=== PATIENT | male | born 1965 | race African-American/Black ===

== ENCOUNTER 2016-09-01 21:01 | Inpatient (IN) | payer MEDICAID ==
[~2016-09-01] VITALS: Ht 180.3 cm; Wt 68.0 kg
[~2016-09-01 21:01] MED LIST: ATI.5 PO; CYCL10TA79 PO
[2016-09-01 21:05] VITALS: BP 150/100
--- NOTE | 2016-09-01 21:07 | NUR ---
PT REINALDO ALS. TAKEN TO BED 8
--- NOTE | 2016-09-01 21:16 | NUR ---
DR. BRITO AT BEDSIDE
[2016-09-01] MEDS ORDERED: MULTIVITAMIN-12 10 ML, THIAMINE 100 MG, MAGNESIUM SULFATE 50% 2,000 MG, FOLIC ACID 5 MG... IV ONE ×5 (21:26)
[2016-09-01] MEDS ORDERED: LORazepam 2 MG/ML VIAL IVP ONE (21:30)
[2016-09-01] MEDS ORDERED: MAGNESIUM SULFATE 50% 1000 MG/2 ML VIAL IV ONE (21:35)
[2016-09-01] MEDS ORDERED: THIAMINE 200 MG/2 ML VIAL ONE (21:35)
[2016-09-01] MEDS ORDERED: MULTIVITAMIN-12 10 ML VIAL IV ONE (21:35)
[2016-09-01] MEDS ORDERED: FOLIC ACID 5 MG/ML SYR ONE (21:35)
--- NOTE | 2016-09-01 21:53 | NUR ---
INFORMED DR. BRITO THE FIRST VIAL OF ATIVAN WAS PULLED AND ACCIDENTALLY THROWN IN THE SHARPS DISPOSAL WITH THE NEEDLES USED IN MIXING THE BANANA BAG, SAID ORDER ANOTHER ATIVAN 1MG VIA IVP
--- NOTE | 2016-09-01 21:56 | NUR ---
BIBA C/O SEIZURES FOR 2-3 MINUTES WITNESSED BY FAMILY, NO TRAUMA NOR INJURY . PT STATES I DIDNT KNOW I HAVE SEIZURE, WITH EPISODES OF NAUSEA AND VOMITTING STARTED TODAY, SKIN IS PINK/WARM/DRY; AAOX4 ,HR EVEN AND REGULAR; PT DENIES ANY FEVER, CP, SOB, OR COUGH AT THIS TIME; PATIENT STATES PAIN OF 8/10 AT THIS TIME;PATINT POSITIONED FOR COMFORT; HOB ELEVATED; BEDRAILS UP X2; BED DOWN.
[2016-09-01 22:01] LABS: HEMATOCRIT 36.3 % (36-52); HEMOGLOBIN 11.8 g/dL (12.0-18.0); MEAN CORPUSCULAR HEMOGLOBIN 33 pg (27-31); MEAN CORPUSCULAR HGB CONC 33 g/dL (33-37); MEAN CORPUSCULAR VOLUME 101 fL (80-94); PLATELET COUNT (AUTO) 114 K/uL (140-450); RED BLOOD CELL COUNT(AUTO) 3.59 MIL/uL (4.20-6.10); RED CELL DISTRIBUTION WIDTH 16.4 % (11.6-13.7); WHITE BLOOD COUNT (AUTO) 6.3 K/uL (4.8-10.8)
--- NOTE | 2016-09-01 22:16 | NUR ---
PT CALM, SLIGHTLY SLEEPY, NO UNUSUAL OBSERVATION NOTED, EYES CLOSE, VITAL SIGN STABLE
[2016-09-01 22:25] LABS: PLATELET ESTIMATE DECREASED
[2016-09-01 22:29] LABS: ALANINE AMINOTRANSFERASE 66 U/L (12-78); ALBUMIN 4.3 g/dL (3.4-5.0); ALCOHOL, BLOOD < 3 mg/dL (<3); ALKALINE PHOSPHATASE 95 U/L (46-116); ANION GAP 27.7 (8-16); ASPARTATE AMINOTRANSFERASE 161 U/L (15-37); CALCIUM 8.9 mg/dL (8.5-10.1); CHLORIDE 96 mmol/L (98-107); CREATININE 1.3 mg/dL (0.6-1.3); GFR ARICAN-AMERICAN 75 mL/min (>90); GFR NON ARICAN-AMERICAN 62 mL/min (>90); GLUCOSE 149 mg/dL (74-106); POTASSIUM 3.7 mmol/L (3.5-5.1); SODIUM SERUM 140 mmol/L (136-145); TOTAL BILIRUBIN 0.9 mg/dL (0.0-1.0); TOTAL PROTEIN, SERUM 8.3 g/dL (6.4-8.2); UREA NITROGEN, BLOOD 9 mg/dL (7-18)
[2016-09-01 22:35] LABS: BAND % (MANUAL) 4 % (0-8); LYMPHOCYTES % (MANUAL) 13 % (20-46); MONOCYTES % (MANUAL) 3 % (5-12); NEUTROPHILS % (MANUAL) 80 (43-65)
[2016-09-01 23:08] LABS: AMPHETAMINE, URINE NEGATIVE ng/ml (NEG <=1000); BARBITURATE, URINE NEGATIVE ng/ml (NEG <=200); BENZODIAZEPINE, URINE NEGATIVE ng/mL (NEG <=200); CANNABINOID, URINE NEGATIVE ng/mL (NEG <=50); COCAINE, URINE NEGATIVE ng/mL (NEG <=300); OPIATE, URINE NEGATIVE ng/mL (NEG <=2000); PHENCYCLIDINE SCREEN,URINE NEGATIVE ng/mL (NEG <=25)
--- NOTE | 2016-09-01 23:09 | NUR ---
PER PT NO PAIN AT THIS TIME,IVF ONGOING WELL TOLERATED,NO SEIZURE NOTED.
[2016-09-02] MEDS ORDERED: ACETAMINOPHEN 325 MG TAB PO PRN (00:40)
[2016-09-02] MEDS ORDERED: HYDROcodone/APAP 7.5/325 MG 1 TAB PO PRN (00:40)
[2016-09-02] MEDS ORDERED: DOCUSATE SODIUM 100 MG GELCAP PO PRN (00:40)
[2016-09-02] MEDS ORDERED: ONDANSETRON 4 MG/2 ML VIAL IM/IVP PRN (00:40)
[2016-09-02] MEDS ORDERED: LORazepam 1 MG TAB PO PRN (00:50)
--- NOTE | 2016-09-02 01:02 | NUR ---
PT AWARE WILL BE TRANSFER TO THE FLOOR FOR ADMISSION
[2016-09-02 01:06] LABS: APPEARANCE,URINE CLEAR (CLEAR); BILIRUBIN,URINE NEGATIVE (NEGATIVE); BLOOD, URINE 3+ (NEGATIVE); COLOR,URINE YELLOW (YELLOW); LEUKOCYTE ESTERASE ,URINE NEGATIVE (NEGATIVE); NITRITE, URINE NEGATIVE (NEGATIVE); PROTEIN,URINE 2+ (NEGATIVE); UGLUCOSE NEGATIVE (NEGATIVE); UROBILINOGEN,URINE 0.2 EU/dL (0.2 - 1)
[2016-09-02 01:14] LABS: INR 1.1 (0.8-1.2); PARTIAL THROMBOPLASTIN TIME 22.9 secs (22-35.6); PROTHROMBIN TIME 10.3 secs (10.8-13.4)
[2016-09-02 01:20] LABS: BACTERIA,URINE OCCASSIONAL /HPF (None Seen); MUCUS,URINE 1+ /LPF (None Seen); RBC,URINE 3-10 (FEW) /HPF (0-5); SQUAMOUS EPITHELIAL CELL,UR 4-10 (MOD) /LPF (0-3 (FEW)); WBC,URINE 0-5 (RARE) /HPF (0-5)
[2016-09-02 01:21] LABS: HYALINE CASTS, URINE 0-10 /LPF (None Seen)
--- NOTE | 2016-09-02 01:25 | NUR ---
ENDORSED TO PEDRITO PT HAS 60 DOLLARS MONEY ON HIS SOCKS AND PT WANTS TO KEEP IT, REFUSED TO PUT IT IN THE SAFE AT THIS TIME, WILL TRANSFER PT TO THE FLOOR
--- NOTE | 2016-09-02 01:29 | NUR ---
Patient will be admitted to care of DR. WANG. Admited to TELE. Will go to room 115. Belongings list completed. Report to PEDRITO. PT AAO NO SIEZURES NOTED.
--- NOTE | 2016-09-02 01:30 | NUR ---
ADMITTED 51 YEAR OLD MALE FROM ER. INITIAL ASSESSMENT COMPLETED. PT AAOX4. PT DENIES PAIN AT THIS TIME. VS STABLE. PT HAS IV ON RIGHT WRIST G 18 INFUSING FLUIDS WELL. PT'S SKIN IS INTACT. ORIENTED PT TO ROOM AND SURROUNDINGS AND USE OF CALL LIGHT. EXPLAINED PLAN OF CARE TO PT AND HE VERBALIZED UNDERSTANDING. PT PLACED ON SAFETY/FALL/SEIZURE PRECAUTION. BED ALARM ON, WILL CONTINUE TO MONITOR PT.
[2016-09-02 01:33] LABS: CHOL/HDL RATIO 1.6 (1-4.5); FREE T4 (FREE THYROXINE) 0.62 ng/dL (0.76-1.46); PHOSPHORUS 4.3 mg/dL (2.5-4.9); THYROID STIMULATING HORMONE 1.4 uIU/mL (0.34-3.76)
[2016-09-02 01:44] LABS: MAGNESIUM 0.9 mg/dL (1.8-2.4)
--- NOTE | 2016-09-02 02:05 | NUR ---
PT'S MAGNESIUM LEVEL 0.9 DR. ECKERT AWARE, WILL FOLLOW UP ON ORDERS.
[2016-09-02] MEDS: MAG SULF 2000 MG/WATER PREMIX 100 ML IV SCH ×2 (02:20→05:28)
[2016-09-02] MEDS: NACL 0.9% 1,000 ML IV SCH ×3 (02:23→19:07)
[2016-09-02] MEDS ORDERED: LEVOFLOXACIN 500 MG/D5W PREMIX 100 ML IV SCH (02:40)
[2016-09-02 04:00] VITALS: BP 135/78
[2016-09-02] MEDS: LORazepam 1 MG TAB PO SCH ×3 (04:20→21:00)
--- NOTE | 2016-09-02 04:47 | NUR ---
PT TOLERATED 0500 MED WELL. PT STABLE. PT HAS SCDS ON. WILL CONTINUE TO MONITOR PT.
[2016-09-02 06:13] LABS: BASOPHILS # (AUTO) 0.1 K/uL (0.00-0.22); BASOPHILS % (AUTO) 1.1 % (0.0-2.0); EOSINOPHILS # (AUTO) 0.1 K/uL (0-0.4); EOSINOPHILS % (AUTO) 1.6 % (0.0-4.0); HEMATOCRIT 34.9 % (36-52); HEMOGLOBIN 11.2 g/dL (12.0-18.0); LYMPHOCYTES # (AUTO) 0.9 K/uL (2.0-11.5); LYMPHOCYTES % (AUTO) 11.4 % (20.5-51.1); MEAN CORPUSCULAR HEMOGLOBIN 33 pg (27-31); MEAN CORPUSCULAR HGB CONC 32 g/dL (33-37); MEAN CORPUSCULAR VOLUME 102 fL (80-94); MONOCYTES # (AUTO) 0.7 K/uL (0.8-1.0); MONOCYTES % (AUTO) 9.1 % (1.7-9.3); NEUTROPHILS # (AUTO) 6.1 K/uL (1.8-7.7); NEUTROPHILS % (AUTO) 76.8 % (42.2-75.2); PLATELET COUNT (AUTO) 86 K/uL (140-450); RED BLOOD CELL COUNT(AUTO) 3.43 MIL/uL (4.20-6.10); RED CELL DISTRIBUTION WIDTH 16.3 % (11.6-13.7); WHITE BLOOD COUNT (AUTO) 7.9 K/uL (4.8-10.8)
--- NOTE | 2016-09-02 06:13 | NUR ---
PT SLEEPING, NO SIGNS OF DISTRESS NOTED. WILL CONTINUE TO MONITOR PT.
[2016-09-02 06:29] LABS: ANION GAP 18.2 (8-16); CALCIUM 8.3 mg/dL (8.5-10.1); CREATININE 0.6 mg/dL (0.6-1.3); POTASSIUM 3.2 mmol/L (3.5-5.1)
[2016-09-02 06:31] LABS: ALBUMIN 3.6 g/dL (3.4-5.0); MAGNESIUM 2.6 mg/dL (1.8-2.4)
--- NOTE | 2016-09-02 06:33 | NUR ---
VOLUNTEER ASSISTANT AT BEDSIDE. PT STABLE, WILL CONTINUE TO MONITOR PT.
--- NOTE | 2016-09-02 07:25 | NUR ---
ENDORSED PLAN OF CARE TO DAY SHIFT NURSE. PT IN STABLE CONDITION.
--- NOTE | 2016-09-02 07:30 | NUR ---
RECEIVED REPORT FROM SHARRON MAJOR. PT IS A/OX4, AMBULATES WITH ASSIST, PT HAS GENERALIZED WEAKNESS, HAND TREMORS ARE NOTED, SKIN IS INTACT, IV TO THE RT WRIST, PATENT, INTACT, FLUSHING WELL, NO S/S OF RESPIRATORY DISTRESS OR DISCOMFORT NOTED, SAFETY/FALL/SEIZURE PRECAUTIONS ARE IN PLACE, DISCUSSED PLAN OF CARE WITH PT, PT VERBALIZED UNDERSTANDING, CALL LIGHT IS WITHIN REACH, WILL CONTINUE TO MONITOR.
[2016-09-02 08:00] VITALS: BP 154/101
[2016-09-02] MEDS ORDERED: KETOROLAC 30 MG/ML VIAL IVP PRN (08:00)
[2016-09-02] MEDS ORDERED: LACTOBACILLUS RHAMNOSUS GG 1 EACH CAP PO SCH (09:00)
[2016-09-02] MEDS ORDERED: POTASSIUM CHLORIDE 10 MEQ TABER PO SCH (09:00)
--- NOTE | 2016-09-02 09:30 | NUR ---
DUE MEDICATIONS WERE GIVEN, PT TOLERATED WELL.
[2016-09-02] MEDS: MULTIVITAMIN 1 TAB PO SCH (09:53)
[2016-09-02] MEDS: FOLIC ACID 1 MG TAB PO SCH (09:53)
[2016-09-02] MEDS: THIAMINE 100 MG TAB PO SCH (09:54)
--- NOTE | 2016-09-02 11:30 | NUR ---
PT RESTING IN BED, TALKING ON THE PHONE.
--- NOTE | 2016-09-02 11:39 | NUR ---
PATIENT HAS BEEN SCREENED AND CATEGORIZED LOW NUTRITION RISK. PATIENT WILL BE SEEN WITHIN 7 DAYS OF ADMISSION. 09/09/16 JULITA CORONADO MBA, RD
[2016-09-02 12:00] VITALS: BP 138/83
--- NOTE | 2016-09-02 13:40 | NUR ---
PT RESTING IN BED, WATCHING TV, NO S/S OF RESPIRATORY DISTRESS OR DISCOMFORT NOTED, CALL LIGHT WITHIN REACH, WILL CONTINUE TO MONITOR.
--- NOTE | 2016-09-02 15:30 | NUR ---
PT SLEEPING IN BED AT THIS TIME, CALL LIGHT WITHIN REACH.
[2016-09-02 16:00] VITALS: BP 124/73
--- NOTE | 2016-09-02 16:45 | NUR ---
CROSS ENTERPRISE INTEGRATOR IS AT BEDSIDE AT THIS TIME.
--- NOTE | 2016-09-02 17:00 | NUR ---
PT RESTING IN BED, WATCHING TV, CALL LIGHT IS WITHIN REACH.
[2016-09-02] MEDS ORDERED: guaiFENesin 20 MG/ML UDC PO PRN (17:10)
--- NOTE | 2016-09-02 19:25 | NUR ---
PT ENDORSED TO SHARRON BOLIVAR. FOR CONTINUITY OF CARE, PT STABLE AT THIS TIME.
--- NOTE | 2016-09-02 19:30 | NUR ---
RECEIVED REPORT FROM THERON MCDERMOTT AT BEDSIDE. PT IS ALERT AWAKE ORIENTED X4. INITIAL ASSESSMENT DONE. NO S/S OF RESPIRATORY DISTRESS OR SOB NOTED. NO C/O PAIN OR ANY DISCOMFORT AT THIS TIME. PLAN OF CARE REVIEWED TO PT AND VERBALIZED UNDERSTANDING. CALL LIGHT WITHIN REACH. WILL CONTINUE TO MONITOR.
[2016-09-02 20:00] VITALS: BP 126/77
[2016-09-03] VITALS: BP 119/73
--- NOTE | 2016-09-03 00:20 | NUR ---
PT IS SLEEPING RIGHT NOW BUT EASILY AROUSABLE. NO S/S OF ANY DISCOMFORT AT THIS TIME. ALL NEEDS ARE ATTENDED. CALL LIGHT WITHIN REACH. WILL CONTINUE TO MONITOR.
[2016-09-03] MEDS: NACL 0.9% 1,000 ML IV SCH ×3 (01:38→22:42)
[2016-09-03] MEDS: LORazepam 1 MG TAB PO PRN ×2 (01:39→03:04)
--- NOTE | 2016-09-03 01:39 | NUR ---
PT IS VERY AGITATED AND RESTLESS TRYING TO PULL OUT HEART MONITOR AND IV LINE. ADMINISTER PRN MEDICATION FOR AGITATION ORDERED. WILL CONTINUE TO MONITOR.
--- NOTE | 2016-09-03 03:04 | NUR ---
PT STILL VERY AGITATED AND RESTLESS TRYING TO PULL OUT HEART MONITOR AND IV LINE. ADMINISTER PRN MEDICATION FOR AGITATION ORDERED. WILL CONTINUE TO MONITOR.
[2016-09-03] MEDS: MORPHINE SULFATE 2 MG/ML SYR IVP PRN ×3 (03:51→17:46)
[2016-09-03 04:00] VITALS: BP 123/76
--- NOTE | 2016-09-03 04:00 | NUR ---
PT IS VERY AGITATED AND RESTLESS TRYING TO WALK AROUND WITH UNSTEADY GAIT. CALLED DR. WANG AND NOTIFIED THAT ATIVAN 2MG PO Q1HR IS NOT EFFECTIVE AND NEW ORDERS WERE GIVEN (PLS SEE CPOE). NEW ORDERS NOTED AND CARRIED OUT. WILL CONTINUE TO MONITOR.
[2016-09-03] MEDS ORDERED: LORazepam 2 MG/ML VIAL ONE (04:04)
[2016-09-03] MEDS: LORazepam 1 MG TAB PO SCH ×4 (04:30→20:06)
[2016-09-03] MEDS: LORazepam 2 MG/ML VIAL IVP PRN ×7 (05:08→21:15)
--- NOTE | 2016-09-03 05:30 | NUR ---
PT IS ASLEEP RIGHT NOW BUT EASILY AROUSABLE. NO S/S OF ANY DISCOMFORT AT THIS TIME. ALL NEEDS ARE ATTENDED. CALL LIGHT WITHIN REACH. WILL CONTINUE TO MONITOR.
--- NOTE | 2016-09-03 06:00 | NUR ---
AM CARE RENDERED. BED LINEN CHANGED. INSTRUCTED PT TO REPOSITION. KEPT CLEAN AND DRY. CALL LIGHT WITHIN REACH. WILL CONTINUE TO MONITOR.
[2016-09-03 06:14] LABS: BASOPHILS # (AUTO) 0.1 K/uL (0.00-0.22); BASOPHILS % (AUTO) 1.9 % (0.0-2.0); EOSINOPHILS # (AUTO) 0.1 K/uL (0-0.4); EOSINOPHILS % (AUTO) 2.1 % (0.0-4.0); HEMATOCRIT 33.5 % (36-52); HEMOGLOBIN 10.6 g/dL (12.0-18.0); LYMPHOCYTES % (AUTO) 18.9 % (20.5-51.1); MEAN CORPUSCULAR HEMOGLOBIN 32 pg (27-31); MEAN CORPUSCULAR HGB CONC 32 g/dL (33-37); MEAN CORPUSCULAR VOLUME 102 fL (80-94); MONOCYTES # (AUTO) 0.6 K/uL (0.8-1.0); MONOCYTES % (AUTO) 11.9 % (1.7-9.3); NEUTROPHILS # (AUTO) 3.6 K/uL (1.8-7.7); NEUTROPHILS % (AUTO) 65.2 % (42.2-75.2); PLATELET COUNT (AUTO) 91 K/uL (140-450); RED BLOOD CELL COUNT(AUTO) 3.28 MIL/uL (4.20-6.10); RED CELL DISTRIBUTION WIDTH 16.1 % (11.6-13.7); WHITE BLOOD COUNT (AUTO) 5.4 K/uL (4.8-10.8)
[2016-09-03 06:23] LABS: ANION GAP 13.1 (8-16); CALCIUM 8.3 mg/dL (8.5-10.1); CARBON DIOXIDE 29.9 mmol/L (21-32); CREATININE 0.8 mg/dL (0.6-1.3)
[2016-09-03 06:31] LABS: MAGNESIUM 1.8 mg/dL (1.8-2.4); PHOSPHORUS 1.5 mg/dL (2.5-4.9)
--- NOTE | 2016-09-03 07:20 | NUR ---
PT HAS NO S/S OF ANY DISCOMFORT. PLAN OF CARE ENDORSED TO NOEL RN AT BEDSIDE FOR CONTINUITY OF CARE.
--- NOTE | 2016-09-03 07:21 | NUR ---
PT ASLEEP BUT EASILY AROUSABLE TO VERBAL AND TACTILE STIMULI. BREATHING EVENLY AND UNLABORED. NO SIGNS OF ACUTE DISTRESS. SKIN IS WARM AND DRY. NO SIGNS OF ANY BOWEL/BLADDER DISCOMFORT. DENIES OF ANY PAIN OR DISCOMFORT. ALL NEEDS ATTENDED, SAFETY PRECAUTIONS MAINTAINED. CALL LIGHT WITHIN REACH.
[2016-09-03 08:00] VITALS: BP 154/99
[2016-09-03] MEDS: THIAMINE 100 MG TAB PO SCH (08:26)
[2016-09-03] MEDS: FOLIC ACID 1 MG TAB PO SCH (08:26)
[2016-09-03] MEDS: MULTIVITAMIN 1 TAB PO SCH (08:26)
--- NOTE | 2016-09-03 10:31 | NUR ---
NEW ORDERS RECEIVED FROM DR. WANG. NOTED AND CARRIED OUT.
--- NOTE | 2016-09-03 11:17 | NUR ---
CM NOTE PER SHAYY SAMANO, REVIEWS SHOULD ONLY BE SENT TO [facility]. [phone] [facility] # [phone]
[2016-09-03 12:00] VITALS: BP 160/107
[2016-09-03] MEDS ORDERED: POTASSIUM PHOSPHATE 15 MM in NACL 0.9% 250 ML IV SCH (12:00)
[2016-09-03 15:24] LABS: HEMOGLOBIN A1C 5.2 % (4.8-5.6); T4 (THYROXINE) 5.6 ug/dL (4.5-12.0)
[2016-09-03 16:00] VITALS: BP 142/112
--- NOTE | 2016-09-03 19:03 | NUR ---
PT ASLEEP BUT RESPONSIVE, NO SIGNS OF ACUTE DISTRESS. ENDORSED TO ONCOMING PROGRAMMING COORDINATOR NURSE FOR CONTINUITY OF CARE.
--- NOTE | 2016-09-03 19:05 | NUR ---
RECEIVED REPORT FROM SHARRON COHEN AT BEDSIDE. INITIAL ASSESSMENT COMPLETED. PT AAOX2; WITH EPISODES OF CONFUSION. PT IN BED; PT STABLE. PT HAS IV ON RIGHT FOREARM G 18; INFUSING FLUIDS WELL. ORIENTED PT TO ROOM AND SURROUNDINGS, EXPLAINED PLAN OF CARE TO PT; REINFORCEMENT NEEDED. SAFETY/FALL RISK MEASURES IN PLACE. BED ALARM ON. WILL CONTINUE TO MONITOR PT.
--- NOTE | 2016-09-03 20:08 | NUR ---
PT TOLERATED 2100 MED WELL, WILL CONTINUE TO MONITOR PT.
[2016-09-03 20:25] VITALS: BP 142/96
--- NOTE | 2016-09-03 21:17 | NUR ---
PT AGITATED, TRYING TO GET OUT OF BED. PT REMOVED HEART MONITOR AND IS TRYING TO REMOVE IV. ATIVAN GIVEN ORDERED. VS STABLE, WILL CONTINUE TO MONITOR PT.
--- NOTE | 2016-09-03 22:30 | NUR ---
PT HAD A LARGE BM, PT CHANGED. WILL CONTINUE TO MONITOR PT.
--- NOTE | 2016-09-03 23:24 | NUR ---
PT SLEEPING AT THIS TIME, NO SIGNS OF DISTRESS OR DISCOMFORT NOTED. WILL CONTINUE TO MONITOR PT.
[2016-09-04] VITALS (7 sets, daily range): BP systolic 122–148; BP diastolic 58–90
--- NOTE | 2016-09-04 01:15 | NUR ---
PT SLEEPING AT THIS TIME, NO SIGNS OF DISTRESS NOTED. WILL CONTINUE TO MONITOR PT.
--- NOTE | 2016-09-04 03:09 | NUR ---
PT AGITATED TRYING TO GET OUT OF BED. WE TOLD PT THAT HE CAN NOT AMBULATED BECAUSE HE IS WEAK. PT STILL TRYING TO GET OUT. VS STABLE, WILL MONITOR ORDERED.
[2016-09-04] MEDS: LORazepam 2 MG/ML VIAL IVP PRN (03:13)
--- NOTE | 2016-09-04 04:50 | NUR ---
PT WET, LINEN CHANGED. BED ALARM ON.
[2016-09-04] MEDS: LORazepam 1 MG TAB PO SCH ×3 (04:54→21:20)
--- NOTE | 2016-09-04 04:59 | NUR ---
PT TOLERATED 0500 MED WELL. PT STABLE, WILL CONTINUE TO MONITOR PT.
[2016-09-04 06:50] LABS: BASOPHILS # (AUTO) 0.1 K/uL (0.00-0.22); BASOPHILS % (AUTO) 0.7 % (0.0-2.0); EOSINOPHILS # (AUTO) 0.1 K/uL (0-0.4); EOSINOPHILS % (AUTO) 1.6 % (0.0-4.0); HEMATOCRIT 36.2 % (36-52); HEMOGLOBIN 11.8 g/dL (12.0-18.0); LYMPHOCYTES % (AUTO) 11.7 % (20.5-51.1); MEAN CORPUSCULAR HEMOGLOBIN 33 pg (27-31); MEAN CORPUSCULAR HGB CONC 33 g/dL (33-37); MEAN CORPUSCULAR VOLUME 101 fL (80-94); MONOCYTES # (AUTO) 0.7 K/uL (0.8-1.0); NEUTROPHILS # (AUTO) 6.3 K/uL (1.8-7.7); PLATELET COUNT (AUTO) 92 K/uL (140-450); RED BLOOD CELL COUNT(AUTO) 3.57 MIL/uL (4.20-6.10); RED CELL DISTRIBUTION WIDTH 16.4 % (11.6-13.7); WHITE BLOOD COUNT (AUTO) 8.2 K/uL (4.8-10.8)
--- NOTE | 2016-09-04 07:20 | NUR ---
ENDORSED PLAN OF CARE TO DAY SHIFT NURSE RN. PT IN STABLE CONDITION.
[2016-09-04 07:25] LABS: ALBUMIN 3.5 g/dL (3.4-5.0); ANION GAP 14.7 (8-16); CALCIUM 8.5 mg/dL (8.5-10.1); CARBON DIOXIDE 26.9 mmol/L (21-32); CREATININE 0.7 mg/dL (0.6-1.3); POTASSIUM 3.6 mmol/L (3.5-5.1); TOTAL BILIRUBIN 0.9 mg/dL (0.0-1.0); TOTAL PROTEIN, SERUM 7.1 g/dL (6.4-8.2)
--- NOTE | 2016-09-04 07:35 | NUR ---
RECEIVED REPORT FROM SHARRON MAJOR. PT IS SLEEPING IN BED, AWAKEN BY NAME, A/OX2, GENERALIZED WEAKNESS NOTED, SKIN IS INTACT, IV ON THE LT FA, PATENT, INTACT, FLUSHING WELL, NO S/S OF RESPIRATORY DISTRESS OR DISCOMFORT NOTED, SAFETY/FALL PRECAUTIONS ARE IN PLACE, DISCUSSED PLAN OF CARE WITH PT, PT VERBALIZED UNDERSTANDING, CALL LIGHT IS WITHIN REACH, WILL CONTINUE TO MONITOR.
[2016-09-04] MEDS ORDERED: MULTIVITAMIN/MINERALS 1 TAB PO SCH (09:00)
[2016-09-04] MEDS: FOLIC ACID 1 MG TAB PO SCH (09:11)
[2016-09-04] MEDS: MULTIVITAMIN 1 TAB PO SCH (09:11)
[2016-09-04] MEDS: THIAMINE 100 MG TAB PO SCH (09:12)
--- NOTE | 2016-09-04 09:36 | NUR ---
PHYSICAL THERAPY WORKING WITH PT AT THIS TIME, PT IS WALKING DOWN THE GIRON WITH A WALKER.
--- NOTE | 2016-09-04 09:47 | NUR ---
CM NOTE [facility] [phone] [facility] # [phone]
[2016-09-04] MEDS: NACL 0.9% 1,000 ML IV SCH ×2 (10:34→21:19)
--- NOTE | 2016-09-04 11:35 | NUR ---
PT IS SLEEPING IN BED AT THIS TIME, CALL LIGHT WITHIN REACH, WILL CONTINUE TO MONITOR.
[2016-09-04] MEDS ORDERED: CYANOCOBALAMIN 100 MCG TAB PO SCH (12:50)
--- NOTE | 2016-09-04 13:04 | NUR ---
DUE ATIVAN HELD, PT IS LETHARGIC AND DROWSY, WILL CONTINUE TO MONITOR, CALL LIGHT WITHIN REACH.
--- NOTE | 2016-09-04 14:58 | NUR ---
VIRIDIANA NOTE FOLLOWED UP WITH VIRIDIANA SANDS OF [facility] PH# [phone] AND SHE SAID THERE IS STILL NO ACCEPTING SNF. GAVE HER THE NUMBER TO THE NURSING FLOOR WHERE THE PATIENT IS IN CASE THERE IS AN ACCEPTING SNF AT A LATER TIME. CHARGE NURSE ALLAN AGUILAR
--- NOTE | 2016-09-04 15:35 | NUR ---
PT IS SLEEPING IN BED, AWAKEN WHEN CALLED BY NAME, CALL LIGHT WITHIN REACH, WILL CONTINUE TO MONITOR.
--- NOTE | 2016-09-04 17:30 | NUR ---
PT RESTING IN BED, NO S/S OF RESPIRATORY DISTRESS OR DISCOMFORT NOTED, CALL LIGHT WITHIN REACH, WILL CONTINUE TO MONITOR.
--- NOTE | 2016-09-04 18:00 | NUR ---
RECEIVED A PHONE CALL FROM [facility] WITH JUAN R PHONE NUMBER , SHE TOLD ME PATIENT WAS GOING TO [facility] [place] IN [place], BED 24B, ACCEPTING PHYSICIAN IS DR. MOYER, REPORT TO BE GIVEN AT , TO SET UP TRANSPORTATION CALL [facility] AT , TO ACTIVATE TRANSPORTATION GIVE THE ACTIVATION NUMBER [id number] AND SET UP A RETAIL MERCHANDISER TIME. I LET [facility] KNOW I WAS AWAITING ON A DISCHARGE ORDER FROM THE DOCTOR.
--- NOTE | 2016-09-04 18:15 | NUR ---
PER ALLAN, CHARGE NURSE RESIDENT DOCTOR WAS PAGED TO NOTIFY HIM OF THE ACCEPTING PHYSICIAN NAME (DR. MOYER).
--- NOTE | 2016-09-04 19:10 | NUR ---
PT ENDORSED TO SHARRON DAN. FOR CONTINUITY OF CARE. PT STABLE AT THIS TIME.
--- NOTE | 2016-09-04 19:35 | NUR ---
RECEIVED PT IN STABLE CONDITION FROM AM NURSE. AWAKE,ALERT AND ORIENTED X4. ON TELE MONITOR. WITH NO C/O ANY DISCOMFORT NOR PAIN NOTED. WITH IVF INFUSING WELL ON THE RT FA#[id number]. CLEAR AND PATENT. FREQUENT ROUNDS NEEDED. WITH SIDE RAILS UP X2. BED ON LOW POSITION. CALL LIGHT PLACED WITHIN EASY REACH. PLAN OF CARE DISCUSSED AND VERBALIZED UNDERSTANDING. WILL CONTINUE TO MONITOR.
--- NOTE | 2016-09-04 22:30 | NUR ---
GOT ORDER FOR DC TO [facility] FROM DR. WANG.
[2016-09-04] MEDS ORDERED: THIA-8 PO (22:32)
[2016-09-04] MEDS ORDERED: ACET-9529 PO (22:32)
[2016-09-04] MEDS ORDERED: FOLI1TAB90 PO (22:32)
[2016-09-04] MEDS ORDERED: MULT-405 PO (22:32)
[2016-09-04] MEDS ORDERED: TOR30I IVP (22:32)
[2016-09-04] MEDS ORDERED: VITB12 PO (22:32)
[2016-09-04] MEDS ORDERED: DOCU-67 PO (22:32)
[2016-09-04] MEDS ORDERED: ROB PO (22:32)
[2016-09-04] MEDS ORDERED: LORA-476 PO (22:32)
[2016-09-04] MEDS ORDERED: ACET-1182 PO (22:32)
[2016-09-04] MEDS ORDERED: MORP2SOL18 IVP (22:33)
[2016-09-04] MEDS ORDERED: ATI2I IVP (22:33)
[2016-09-04] MEDS ORDERED: ONDA2SOL45 IM/IVP (22:33)
--- NOTE | 2016-09-04 22:45 | NUR ---
CALLED [facility] . THEY SAID THEY DON'T GO [place]AR [place] TO TRANSFER PT. SHARRON BRAN CHARGE AND SHARRON SULTANA CONE FORMER MADE AWARE.
--- NOTE | 2016-09-04 22:56 | NUR ---
CALLED VIRIDIANA MARTÍNEZ AND MADE HER AWARE ABOUT [facility] NOT BE ABLE TO TRANSFER PT DUE TO LOCATION. MAURICIO SAID SHE WILL TAKE CARE OF THIS IN AM.
--- NOTE | 2016-09-05 01:00 | NUR ---
SLEEPING WELL AT THIS TIME. NO S/S FO ANY DISCOMFORT NOTED.
--- NOTE | 2016-09-05 03:15 | NUR ---
MADE ROUNDS. PT IS ASLEEP. NO S/S OF ANY DISCOMFORT NOR PAIN NOTED.
[2016-09-05 04:23] VITALS: BP 120/72
[2016-09-05] MEDS: LORazepam 1 MG TAB PO SCH ×2 (05:00→13:00)
--- NOTE | 2016-09-05 05:50 | NUR ---
ATIVAN PO NOT GIVEN . PT IS VERY SLEEPY . NO SEIZURE ACTIVITY NOTED DURING THE NIGHT.
[2016-09-05] MEDS: NACL 0.9% 1,000 ML IV SCH ×2 (07:24→07:35)
--- NOTE | 2016-09-05 07:26 | NUR ---
ENDORSED PT IN STABLE CONDITION TO AM NURSE.
--- NOTE | 2016-09-05 07:30 | NUR ---
RECEIVED REPORT FROM SHARRON DAN. PT IS SLEEPING IN BED, AWAKEN BY NAME, A/OX3-4, GENERALIZED WEAKNESS NOTED, SKIN IS INTACT, IV ON THE LT FA, PATENT, INTACT, FLUSHING WELL, NO S/S OF RESPIRATORY DISTRESS OR DISCOMFORT NOTED, SAFETY/FALL PRECAUTIONS ARE IN PLACE, DISCUSSED PLAN OF CARE WITH PT, PT VERBALIZED UNDERSTANDING, CALL LIGHT IS WITHIN REACH, WILL CONTINUE TO MONITOR.
[2016-09-05] MEDS: FOLIC ACID 1 MG TAB PO SCH ×2 (07:40→09:13)
[2016-09-05 07:44] LABS: ANION GAP 14.7 (8-16); CALCIUM 8.3 mg/dL (8.5-10.1); CARBON DIOXIDE 24.9 mmol/L (21-32); CREATININE 0.7 mg/dL (0.6-1.3); POTASSIUM 3.6 mmol/L (3.5-5.1)
[2016-09-05 07:47] LABS: BASOPHILS # (AUTO) 0.1 K/uL (0.00-0.22); BASOPHILS % (AUTO) 0.9 % (0.0-2.0); EOSINOPHILS # (AUTO) 0.1 K/uL (0-0.4); EOSINOPHILS % (AUTO) 2.2 % (0.0-4.0); HEMATOCRIT 31.4 % (36-52); HEMOGLOBIN 10.1 g/dL (12.0-18.0); LYMPHOCYTES # (AUTO) 1.1 K/uL (2.0-11.5); LYMPHOCYTES % (AUTO) 18.7 % (20.5-51.1); MAGNESIUM 1.3 mg/dL (1.8-2.4); MEAN CORPUSCULAR HEMOGLOBIN 33 pg (27-31); MEAN CORPUSCULAR HGB CONC 32 g/dL (33-37); MEAN CORPUSCULAR VOLUME 103 fL (80-94); MONOCYTES # (AUTO) 0.7 K/uL (0.8-1.0); MONOCYTES % (AUTO) 12.4 % (1.7-9.3); NEUTROPHILS # (AUTO) 3.7 K/uL (1.8-7.7); NEUTROPHILS % (AUTO) 65.8 % (42.2-75.2); PHOSPHORUS 3.3 mg/dL (2.5-4.9); PLATELET COUNT (AUTO) 86 K/uL (140-450); RED BLOOD CELL COUNT(AUTO) 3.05 MIL/uL (4.20-6.10); RED CELL DISTRIBUTION WIDTH 15.1 % (11.6-13.7); WHITE BLOOD COUNT (AUTO) 5.7 K/uL (4.8-10.8)
[2016-09-05 08:00] VITALS: BP 147/96
[2016-09-05] MEDS ORDERED: CYANOCOBALAMIN 100 MCG TAB PO SCH (09:00)
[2016-09-05] MEDS: THIAMINE 100 MG TAB PO SCH (09:13)
[2016-09-05] MEDS: MULTIVITAMIN 1 TAB PO SCH (09:13)
--- NOTE | 2016-09-05 09:13 | NUR ---
DUE MEDICATIONS GIVEN, PT TOLERATED, CALL LIGHT WITHIN REACH.
--- NOTE | 2016-09-05 10:25 | NUR ---
[facility]S [facility] SAILBOAT CAPTAIN CM TODAY AT [phone]. CALLED [facility] TO REQUEST TRANSPORT COMPANY [facility] DOES NOT SERVICE [place] [facility]. JUAN REID CAN USE [facility] AND USE SAME AUTH #[id number].
--- NOTE | 2016-09-05 11:00 | NUR ---
I CALLED KIARA DE LOS SANTOS AT , GAVE REPORT TO SHARRON LANDIN. I LET HER KNOW THE PATIENT WAS BEING TRANSFERRED OVER TODAY.
--- NOTE | 2016-09-05 11:00 | NUR ---
CALLED [facility] AND SPOKE WITH ENDER AND CONFIRMED THAT PT'S BED IS STILL AVAILABLE. NURSE TO CALL REPORT TO [phone]. CALL TO [facility] [phone] AND SPOKE TO [employer] AND SCHEDULED W/C TRANSPORT WITH TIRE REBUILDER TIME AT 1400. PROVIDE [facility] WITH AUTH#[id number] PER FRANKLNI KEMP AT [facility].
--- NOTE | 2016-09-05 11:03 | NUR ---
CALLED THE PATIENTS MOTHER (FATOU KNOWLES) AT [phone], I REACHED HER VOICEMAIL, I LEFT HER A MESSAGE LETTING HER KNOW I WAS CALLING FROM [facility] TO NOTIFY HER THAT THE PATIENT WAS BEING DISCHARGED AND TRANSFERRED TO [facility] IN [place], FOR PHYSICAL THERAPY, I LEFT HER MY EXT. AND CALL BACK NUMBER IN CASE SHE HAD ANY QUESTIONS.
--- NOTE | 2016-09-05 11:15 | NUR ---
INFORMED PT HE WOULD BE GETTING TRANSFERRED TO SNF TODAY AND TRANSPORTATION WOULD BE PICKING HIM UP AROUND 1400, PT VERBALIZED UNDERSTANDING.
[2016-09-05 12:00] VITALS: BP 121/74
--- NOTE | 2016-09-05 13:00 | NUR ---
PT SLEEPING IN BED AT THIS TIME
--- NOTE | 2016-09-05 14:30 | NUR ---
DISCHARGE INSTRUCTIONS GIVEN, ID WRIST BAND REMOVED, IV REMOVED CATHETER TIP INTACT. PT ASKED ABOUT MONEY HE HAD INSIDE HIS SOCKS, I LOOKED INSIDE THE PATIENT BELONGINGS BAG, I LET HIM KNOW I DID NOT FIND ANY DIRTY SOCKS WITH MONEY. PT REFUSED TO FINISH SIGNING DISCHARGE PAPERWORK.
--- NOTE | 2016-09-05 15:16 | NUR ---
PHYSICAL THERAPY CO-SIGN The Physical Therapy Progress Notes documented by Research Assistant Member have been reviewed. I CONCUR W/OPTO MECHANICAL ENGINEER NOTE Reviewed/Co-Signed by: Yara Guzman PT Documentation Done by: MARA CORDERO OPTO MECHANICAL ENGINEER Addendum: 09/05/16 at 1518 by Yara Guzman PT Amended: Links added.
--- NOTE | 2016-09-05 15:20 | NUR ---
[facility] TRANSPORT HER TO [facility] PT, PT WHEELED OUT ACCOMPANIED BY TRANSPORT, PT DISCHARGED IN STABLE CONDITION.
[2016-09-05] MEDS ORDERED: MAG SULF 2000 MG/WATER PREMIX 100 ML IV SCH (17:00)
[2016-09-05] MEDS ORDERED: LORazepam 1 MG TAB PO SCH (21:00)
== END 2016-09-05 15:20 | DRG 775 ==
LOC: MED 21:01 → MTU 09-02 00:47
PROVIDERS: ADMIT Family Medicine; ATTEND Family Medicine
DX: F10.231 Alcohol dependence with withdrawal delirium (principal); N17.0 Acute kidney failure with tubular necrosis; D53.9 Nutritional anemia, unspecified; E83.42 Hypomagnesemia; E87.6 Hypokalemia; I10 Essential (primary) hypertension; E78.00 Pure hypercholesterolemia, unspecified; R74.0 Nonspecific elevation of levels of transaminase and lactic acid dehydrogenase [LDH]; F17.210 Nicotine dependence, cigarettes, uncomplicated; N28.1 Cyst of kidney, acquired; Z60.2 Problems related to living alone; Z79.899 Other long term (current) drug therapy; Z87.11 Personal history of peptic ulcer disease
CPT/HCPCS: 36415; 71010; 76705; 76770; 80048; 80053; 80305; 81001; 82040; 82150; 83036; 83690; 83735; 83880; 84100; 84436; 84439; 84443; 84479; 84484; 85025; 85610; 85730; 87081; 96365; 96366; 96375; 97110; 97116; 97140; 97530; 99285; A9153; G0482; J2060; J2270; J3411; J3475; J3490; J7030; Q0092

== ENCOUNTER 2018-03-02 22:22 | Emergency (ER) | payer MEDICAID ==
[~2018-03-02] VITALS: Ht 177.8 cm; Wt 63.5 kg
[~2018-03-02 22:22] MED LIST changes: +ACET-1182 PO; +ACET-9529 PO; +ATI2I IVP; +DOCU-299 PO; +FOLI1TAB90 PO; +LORA-476 PO; +MORP2SOL18 IVP; +MULT-405 PO; +ONDA2SOL45 IM/IVP; +ROB PO; +THIA-34 PO; +TOR30I IVP; +VITB12 PO
[2018-03-02 22:35] VITALS: BP 140/85
[2018-03-03] MEDS: NACL 0.9% 1,000 ML IV ONE (00:41)
[2018-03-03] MEDS: LORazepam 2 MG/ML VIAL IVP ONE (00:42)
[2018-03-03] MEDS: KETOROLAC 30 MG/ML VIAL IVP ONE (00:42)
[2018-03-03 01:07] LABS: BASOPHILS % (AUTO) 0.3 % (0.0-2.0); EOSINOPHILS # (AUTO) 0.1 K/uL (0-0.4); EOSINOPHILS % (AUTO) 2.4 % (0.0-4.0); HEMATOCRIT 31.8 % (36-52); HEMOGLOBIN 10.3 g/dL (12.0-18.0); LYMPHOCYTES # (AUTO) 2.2 K/uL (2.0-11.5); LYMPHOCYTES % (AUTO) 42.6 % (20.5-51.1); MEAN CORPUSCULAR HEMOGLOBIN 34 pg (27-31); MEAN CORPUSCULAR HGB CONC 32 g/dL (33-37); MEAN CORPUSCULAR VOLUME 104.3 fL (80-94); MONOCYTES # (AUTO) 0.5 K/uL (0.8-1.0); MONOCYTES % (AUTO) 10.3 % (1.7-9.3); NEUTROPHILS # (AUTO) 2.3 K/uL (1.8-7.7); NEUTROPHILS % (AUTO) 44.4 % (42.2-75.2); PLATELET COUNT (AUTO) 98 K/uL (140-450); RED BLOOD CELL COUNT(AUTO) 3.05 MIL/uL (4.20-6.10); RED CELL DISTRIBUTION WIDTH 19.6 % (11.6-13.7); WHITE BLOOD COUNT (AUTO) 5.1 K/uL (4.8-10.8)
[2018-03-03 01:16] LABS: ANION GAP 13.1 (8-16); CARBON DIOXIDE 31.3 mmol/L (21-32); CREATININE 0.9 mg/dL (0.7-1.3); POTASSIUM 3.4 mmol/L (3.5-5.1)
[2018-03-03 01:24] LABS: TOTAL BILIRUBIN 0.3 mg/dL (0.0-1.0)
[2018-03-03 02:30] VITALS: BP 140/89
== END 2018-03-03 02:29 | disposition home or self-care (01) ==
LOC: MED 22:22
DX: S09.90XA Unspecified injury of head, initial encounter (principal); F10.129 Alcohol abuse with intoxication, unspecified; I10 Essential (primary) hypertension; F17.200 Nicotine dependence, unspecified, uncomplicated; Z79.899 Other long term (current) drug therapy; Z71.6 Tobacco abuse counseling; W08.XXXA Fall from other furniture, initial encounter; Y93.89 Activity, other specified; Y92.89 Other specified places as the place of occurrence of the external cause; Y99.8 Other external cause status
CPT/HCPCS: 36415; 70450; 72125; 80053; 81002; 83690; 85025; 96374; 96375; 99284; C1758; G0482; J1885; J2060; J7030

== ENCOUNTER 2020-03-11 19:28 | Emergency (ER) | payer MEDICAID ==
[~2020-03-11] VITALS: Ht 180.3 cm; Wt 59.0 kg
[2020-03-11 19:45] VITALS: BP 110/69
--- NOTE | 2020-03-11 19:53 | NUR ---
PT AMBULATED TO ER BED 12 VIA WALKED W/ STEADY GAIT.
--- NOTE | 2020-03-11 19:55 | NUR ---
ERMD AT BEDSIDE FOR MEDICAL EVALUATION.
--- NOTE | 2020-03-11 20:00 | NUR ---
PT 54 Y/O MALE BIB SELF FOR C/O 11/14 PAIN WITH BILAT ANKLE PAIN X 4 DAYS. PT STATES, "I STRTED HAVING SWELLING 4 DAYS AGO. I WENT TO MY DOCTOR AND HE SENT ME TO [facility] BUT THEY DIDNT DO ANYTHING FOR ME EITHER." PT STATES PAIN PROVKED BY TOUCH OR AMBULATION. PT ABLE TO AMBULATE WITH WALKER. PT HAS HX OF L HIP FRACTURE X 1 YEAR. SKIN IS WARM AND DRY TOUCH, PITTING EDEMA +1 BILAT. PT CAP REFIL <3. VSS. BED LOCKED AND IN LOWEST POSITION. MEDHX: HTN, L HIP FRACTURE. ALLERGIES: NKA
--- NOTE | 2020-03-11 20:27 | NUR ---
LAB AT BEDSIDE.
[2020-03-11 20:40] LABS: BASOPHILS # (AUTO) 0.1 K/uL (0.00-0.22); BASOPHILS % (AUTO) 1.2 % (0.0-2.0); EOSINOPHILS # (AUTO) 0.2 K/uL (0-0.4); EOSINOPHILS % (AUTO) 2.9 % (0.0-4.0); HEMATOCRIT 26.9 % (36-52); HEMOGLOBIN 8.4 g/dL (12.0-18.0); LYMPHOCYTES # (AUTO) 1.5 K/uL (2.0-11.5); LYMPHOCYTES % (AUTO) 25.7 % (20.5-51.1); MEAN CORPUSCULAR HEMOGLOBIN 33 pg (27-31); MEAN CORPUSCULAR HGB CONC 31 g/dL (33-37); MEAN CORPUSCULAR VOLUME 106.4 fL (80-94); MONOCYTES # (AUTO) 0.8 K/uL (0.8-1.0); MONOCYTES % (AUTO) 14.1 % (1.7-9.3); NEUTROPHILS # (AUTO) 3.3 K/uL (1.8-7.7); NEUTROPHILS % (AUTO) 56.1 % (42.2-75.2); PLATELET COUNT (AUTO) 214 K/uL (140-450); RED BLOOD CELL COUNT(AUTO) 2.53 MIL/uL (4.20-6.10); RED CELL DISTRIBUTION WIDTH 18.9 % (11.6-13.7); WHITE BLOOD COUNT (AUTO) 5.8 K/uL (4.8-10.8)
[2020-03-11 20:49] LABS: ANION GAP 12.5 (8-16); CARBON DIOXIDE 30.5 mmol/L (21-32); CREATININE 0.8 mg/dL (0.6-1.3)
--- NOTE | 2020-03-11 20:53 | NUR ---
ERMD AT BEDSIDE RE-EVALUATING PT.
[2020-03-11 21:15] VITALS: BP 110/69
--- NOTE | 2020-03-11 21:15 | NUR ---
Patient discharged with v/s stable. Written and verbal after care instructions given and explained. Patient alert, oriented and verbalized understanding of instructions. Ambulatory with steady gait. All questions addressed prior to discharge. ID band removed. Patient advised to follow up with PMD. Rx of LASIX given. Patient educated on indication of medication including possible reaction and side effects. Opportunity to ask questions provided and answered.
== END 2020-03-11 21:15 | disposition home or self-care (01) ==
LOC: MED 19:28
DX: R22.43 Localized swelling, mass and lump, lower limb, bilateral (principal); I10 Essential (primary) hypertension; R56.9 Unspecified convulsions; Z79.899 Other long term (current) drug therapy
CPT/HCPCS: 36415; 80048; 85025; 99283

== ENCOUNTER 2022-04-26 12:46 | Emergency (ER) | payer MEDICAID ==
[~2022-04-26] VITALS: Ht 167.6 cm; Wt 77.1 kg
[~2022-04-26 12:46] MED LIST changes: +KETO30SO21 IVP; -TOR30I IVP
[2022-04-26 12:57] VITALS: BP 122/81
[2022-04-26] MEDS ORDERED: IBUP-2213 PO (15:11)
[2022-04-26] MEDS ORDERED: BENZ200C4 PO (15:11)
== END 2022-04-26 15:23 | disposition home or self-care (01) ==
LOC: MED 12:46
DX: R13.10 Dysphagia, unspecified (principal); J02.9 Acute pharyngitis, unspecified; I10 Essential (primary) hypertension; F17.200 Nicotine dependence, unspecified, uncomplicated; Z71.6 Tobacco abuse counseling; Z79.899 Other long term (current) drug therapy
CPT/HCPCS: 99283